=== PATIENT | male | born 1960 | race Caucasian/White ===

== ENCOUNTER 2022-03-10 14:05 | Emergency (ER) | payer OTHER ==
[~2022-03-10] VITALS: Ht 177.8 cm; Wt 81.6 kg
[2022-03-10 14:15] VITALS: BP_SYST 137
--- NOTE | 2022-03-10 15:20 | NUR ---
Patient to ER bed 03 to gown for evaluation. Side rails up. Report given to Barrington SALCEDO.
--- NOTE | 2022-03-10 15:30 | NUR ---
patient with inguinal hernia, ambulatory to er c/o discomfort place in room 3 awaiting for edp for initial assessment.
[2022-03-10] MEDS ORDERED: IBUP-1971 PO (16:59)
--- NOTE | 2022-03-10 17:14 | NUR ---
EDP REASSESS PATIENT AND D/C HOME WITH INSTRUCTION.
--- NOTE | 2022-03-10 17:17 | NUR ---
Patient given written and verbal discharge instructions and verbalizes understanding. ER MD discussed with patient the results and treatment provided. Patient in stable condition. ID arm band removed. IV catheter removed intact and dressing applied, no active bleeding. Rx of IBUPROFEN given. Patient educated on pain management and to follow up with PMD. Pain Scale 0 Opportunity for questions provided and answered. Medication side effect fact sheet provided.
== END 2022-03-10 17:17 | disposition home or self-care (01) ==
LOC: SED 14:05
DX: K40.90 Unilateral inguinal hernia, without obstruction or gangrene, not specified as recurrent (principal); R10.30 Lower abdominal pain, unspecified; Z79.899 Other long term (current) drug therapy
CPT/HCPCS: 99282